=== PATIENT | female | born 1955 | race Caucasian/White ===

== ENCOUNTER → 2016-08-28 | Outpatient (CLI) | payer MEDICARE, OTHER | LOC: RAD 11:05 | DX: R05 Cough (principal); Z95.2 Presence of prosthetic heart valve | CPT/HCPCS: 71020 ==

== ENCOUNTER → 2021-06-04 | Outpatient (CLI) | payer MEDICARE ==
[~2021-06-04] MED LIST: ASPIRIN81 MG PO; COZAAR50 MG PO; CYCLOBENZAPRINE10 MG PO; CYCLOBENZAPRINE5 MG PO; FISH OIL 1,0001 EACH PO; LEVEMIR100 UNIT/1 SQ; METFORMIN ER1000 MG PO; METOPROLOL SUC100 MG PO; NEURONTIN400 MG PO; NORVASC5 MG PO; POTASSIUM CHLO20 ME2 PO; PROZAC40 MG PO; TRULICITY0.75 MG/0. SQ; ULTRAM50 MG PO; WARFARIN SODIUM5 MG PO
== END ==
LOC: KOH-I 16:28
DX: R51.9 Headache, unspecified (principal); E11.9 Type 2 diabetes mellitus without complications; I10 Essential (primary) hypertension; Z95.828 Presence of other vascular implants and grafts
CPT/HCPCS: 70450

== ENCOUNTER → 2021-07-10 | Outpatient (CLI) | payer MEDICARE | LOC: HEART 5 10:00 | DX: I08.3 Combined rheumatic disorders of mitral, aortic and tricuspid valves (principal); R00.2 Palpitations | CPT/HCPCS: 93306 ==

== ENCOUNTER 2021-07-29 12:46 | Emergency (ER) | payer MEDICARE ==
[2021-07-29 13:45] LABS: HEMOGLOBIN 13.1 gm/dl (12.3-15.3); RED BLOOD COUNT 4.46 M/UL (4.00-5.10); WHITE BLOOD COUNT 8.4 K/UL (4.5-11.0)
[2021-07-29 14:13] LABS: BUN/CREATININE RATIO 18 (0-10)
== END 2021-07-29 16:41 | disposition home or self-care (01) ==
LOC: ER1 12:46
PROVIDERS: Emergency Medicine
DX: E87.6 Hypokalemia (principal); R00.2 Palpitations; I25.10 Atherosclerotic heart disease of native coronary artery without angina pectoris; I10 Essential (primary) hypertension; E11.9 Type 2 diabetes mellitus without complications; Z79.01 Long term (current) use of anticoagulants; F17.210 Nicotine dependence, cigarettes, uncomplicated
CPT/HCPCS: 70450; 71045; 80053; 82550; 82553; 84484; 85025; 93005; 99285